=== PATIENT | male | born 1995 | race Caucasian/White ===

== ENCOUNTER 2016-12-22 21:43 | Emergency (ER) | payer OTHER ==
[~2016-12-22] VITALS: Ht 170.2 cm; Wt 65.0 kg
[2016-12-22 21:47] VITALS: TEMP 36.2; Ht 170.2 cm; Wt 65.0 kg
--- NOTE | 2016-12-22 22:14 | DIAGNOSTIC IMAGING REPORT ---
CHEST ONE VIEW PORTABLE CLINICAL HISTORY: Evaluate Fever/Sepsis dyspnea COMPARISON STUDY: No previous studies for comparison. FINDINGS: The bones soft tissues and hemidiaphragms are normal. The cardiomediastinal silhouette is normal. The lungs are clear. The pulmonary vasculature is normal. IMPRESSION: Negative chest. Electronically signed by: Dominic Hays M.D. 12/22/2016 10:13 PM Dictated Date/Time: 12/22/2016 10:13 PM
[2016-12-22 22:36] LABS: BASO % 0.4 %; BASO ABS # 0.04 K/uL (0-0.2); COMPLETE YES; EOS % 2.1 %; HEMATOCRIT 43.2 % (42-52); IG% 0.2 %; LYMPH % 35.8 %; LYMPH ABS # 3.29 K/uL (1.2-3.4); MEAN CELL VOLUME 90.2 fL (80-100); MEAN CORPUSCULAR HEMOGLOBIN 31.7 pg (25-34); MEAN CORPUSCULAR HGB CONC 35.2 g/dl (32-36); MEAN PLATELET VOLUME 11.1 fL (7.4-10.4); MONO % 10.2 %; NEUT % 51.3 %; PLATELET COUNT 222 K/uL (130-400); RED BLOOD COUNT 4.79 M/uL (4.7-6.1); WHITE BLOOD COUNT 9.19 K/uL (4.8-10.8)
[2016-12-22 22:57] LABS: ALT/SGPT 30 U/L (12-78); BLOOD UREA NITROGEN 15 mg/dl (7-18); BUN/CREATININE RATIO 15.2 (10-20); CARBON DIOXIDE 25 mmol/L (21-32); CHLORIDE 103 mmol/L (98-107); GLUCOSE 80 mg/dl (70-99); POTASSIUM 3.6 mmol/L (3.5-5.1); SODIUM 141 mmol/L (136-145)
[2016-12-22 23:02] LABS: ALKALINE PHOSPHATASE 80 U/L (45-117); AST/SGOT 27 U/L (15-37); CKMB/CK RATIO 0.4 (0-3.0)
--- NOTE | 2016-12-22 23:41 | EMERGENCY ROOM VISIT NOTE ---
History Report prepared by Stephyibjesús: Katty Del Cid Under the Supervision of: Dr. Dimas Mar D.O. First contact with patient: 21:54 Chief Complaint: CARDIAC ASSESSMENT Stated Complaint: CHEST PAIN History of Present Illness The patient is a 21 year old male who presents to the Emergency Room with complaints of constant chest discomfort beginning earlier today. The patient states that over the weekend he drank very heavily. He feels like his heart is "working harder" than normal. The patient also notes he could be recovering from a hangover. He denies any other symptoms at this time. Source of History: patient Onset: earlier today Position: chest Quality: other (discomfort) Timing: constant Note: Patient denies any other symptoms at this time. Review of Systems See HPI for pertinent positives & negatives. A total of 10 systems reviewed and were otherwise negative. Past Medical & Surgical Medical Problems: (1) No chronic problems Family History Patient reports no known family medical history. Social History Smoking Status: Never Smoker Smokeless Tobacco Use: No Alcohol Use: occasionally Marital Status: single Housing Status: lives with roommate Occupation Status: [employer] student Current/Historical Medications No Active Prescriptions or Reported Meds Allergies Coded Allergies: No Known Allergies (Unverified , 12/22/16) Physical Exam Vital Signs Date Time Temp Pulse Resp B/P Pulse Ox O2 Delivery O2 Flow Rate FiO2 12/22/16 23:33 66 18 120/57 96 Room Air 12/22/16 22:19 99 Room Air 12/22/16 22:16 62 12/22/16 21:47 36.2 104 18 97 Room Air Physical Exam CONSTITUTIONAL/VITAL SIGNS: Reviewed / noted above. GENERAL: Non-toxic in appearance. INTEGUMENTARY: Warm, dry, and Parc. HEAD: Normocephalic. EYES: without scleral icterus or trauma. ENT/OROPHARYNX: clear and moist. LYMPHADENOPATHY/NECK: Is supple without lymphadenopathy or meningismus. RESPIRATORY: Lungs clear and equal. CARDIOVASCULAR: Regular rate and rhythm. GI/ABDOMEN: Soft and nontender. No organomegaly or pulsatile mass. No rebound or guarding. Normal bowel sounds. EXTREMITIES: Warm and well perfused. BACK: No CVA tenderness. NEUROLOGICAL: Intact without focal deficits. PSYCHIATRIC: normal affect. MUSCULOSKELETAL: Normally developed with good muscle tone. Medical Decision & Procedures ER Provider Diagnostic Interpretation: X ray results and stated below per my interpretation and radiology interpretation. CHEST ONE VIEW PORTABLE CLINICAL HISTORY: Evaluate Fever/Sepsis dyspnea COMPARISON STUDY: No previous studies for comparison. FINDINGS: The bones soft tissues and hemidiaphragms are normal. The cardiomediastinal silhouette is normal. The lungs are clear. The pulmonary vasculature is normal. IMPRESSION: Negative chest. Electronically signed by: Dominic Hays M.D. 12/22/2016 10:13 PM Dictated Date/Time: 12/22/2016 10:13 PM Laboratory Results 12/22/16 22:15 Red Blood Count 4.79, Mean Corpuscular Volume 90.2, Mean Corpuscular Hemoglobin 31.7, Mean Corpuscular Hemoglobin Concent 35.2, Mean Platelet Volume 11.1, Neutrophils (%) (Auto) 51.3, Lymphocytes (%) (Auto) 35.8, Monocytes (%) (Auto) 10.2, Eosinophils (%) (Auto) 2.1, Basophils (%) (Auto) 0.4, Neutrophils # (Auto ) 4.71, Lymphocytes # (Auto) 3.29, Monocytes # (Auto) 0.94, Eosinophils # (Auto ) 0.19, Basophils # (Auto) 0.04 12/22/16 22:15 Test 12/22/16 22:15 White Blood Count 9.19 K/uL (4.8-10.8) Red Blood Count 4.79 M/uL (4.7-6.1) Hemoglobin 15.2 g/dL (14.0-18.0) Hematocrit 43.2 % (42-52) Mean Corpuscular Volume 90.2 fL (80-100) Mean Corpuscular Hemoglobin 31.7 pg (25-34) Mean Corpuscular Hemoglobin Concent 35.2 g/dl (32-36) Platelet Count 222 K/uL (130-400) Mean Platelet Volume 11.1 fL (7.4-10.4) Neutrophils (%) (Auto) 51.3 % Lymphocytes (%) (Auto) 35.8 % Monocytes (%) (Auto) 10.2 % Eosinophils (%) (Auto) 2.1 % Basophils (%) (Auto) 0.4 % Neutrophils # (Auto) 4.71 K/uL (1.4-6.5) Lymphocytes # (Auto) 3.29 K/uL (1.2-3.4) Monocytes # (Auto) 0.94 K/uL (0.11-0.59) Eosinophils # (Auto) 0.19 K/uL (0-0.5) Basophils # (Auto) 0.04 K/uL (0-0.2) RDW Standard Deviation 43.3 fL (36.4-46.3) RDW Coefficient of Variation 13.2 % (11.5-14.5) Immature Granulocyte % (Auto) 0.2 % Immature Granulocyte # (Auto) 0.02 K/uL (0.00-0.02) Anion Gap 13.0 mmol/L (3-11) Est Creatinine Clear Calc Drug Dose 107.4 ml/min Estimated GFR () 124.1 Estimated GFR (Non- 107.1 BUN/Creatinine Ratio 15.2 (10-20) Calcium Level 9.0 mg/dl (8.5-10.1) Total Bilirubin 1.3 mg/dl (0.2-1) Direct Bilirubin 0.2 mg/dl (0-0.2) Aspartate Amino Transf (AST/SGOT) 27 U/L (15-37) Alanine Aminotransferase (ALT/SGPT) 30 U/L (12-78) Alkaline Phosphatase 80 U/L (45-117) Total Creatine Kinase 176 U/L (39-308) Creatine Kinase MB 0.7 ng/ml (0.5-3.6) Creatine Kinase MB Ratio 0.4 (0-3.0) Troponin I < 0.015 ng/ml (0-0.045) Total Protein 8.0 gm/dl (6.4-8.2) Albumin 4.0 gm/dl (3.4-5.0) Lipase 100 U/L (73-393) Laboratory results as stated above per my review. ECG Indication: chest pain Rate (beats per minute): 63 Rhythm: sinus with SA Findings: no acute ischemic change, no ectopy ED Course 2202: Previous medical records were reviewed. The patient was evaluated in room A11. A complete history and physical examination was performed. 2344: On reevaluation, the patient is hemodynamically stable. I discussed the results and findings with the patient. He verbalized agreement of the treatment plan. He was discharged home. Medical Decision The patient is a 21 year old male who presents to the ED with complaints of chest discomfort. The patient states that he has been drinking heavily over the weekend. He reports some discomfort in his chest. He talked to an advice nurse and she requested that he be seen in the emergency department. The patient has stable vital signs. His physical exam was unremarkable. An EKG shows a sinus rhythm with a sinus arrhythmia. CBC and complete metabolic panel were unremarkable. Troponin is negative. Chest x-ray did not show any acute disease. The patient was told results. He is felt to have a gastritis related to recent alcohol consumption. He was felt to be stable for discharge. the differential was considered includes acute myocardial infarction, acute coronary syndrome, myocarditis, pericarditis, pericardial effusions /tamponade, esophageal perforation, thoracic aortic dissection, pulmonary embolism, pneumonia, pneumothorax, pancreatitis, shingles, acute cholecystitis, perforated abdominal viscus. Impression Primary Impression: Retrosternal chest pain Additional Impression: Gastritis, alcoholic Scribe Attestation The scribe's documentation has been prepared under my direction and personally reviewed by me in its entirety. I confirm that the note above accurately reflects all work, treatment, procedures, and medical decision making performed by me. Departure Information Dispostion Home / Self-Care Prescriptions No Active Prescriptions or Reported Meds Referrals No Doctor, Assigned (PCP) Forms IMPORTANT VISIT INFORMATION Patient Instructions My [facility] Additional Instructions Avoid excessive alcohol consumption. Follow-up with [facility] for symptoms continue. Try [id number] Maalox or Mylanta for your symptoms. Return for worsening or new concerns. Problem Qualifiers
[2016-12-22 23:50] VITALS: BP 120/57; PULSE 66; O2SAT 96
== END 2016-12-22 23:51 | disposition home or self-care (01) ==
LOC: C.EDB 21:45 → C.EDA 23:51
DX: R07.2 Precordial pain (principal); K29.20 Alcoholic gastritis without bleeding